=== PATIENT | female | born 1970 | race African-American/Black ===

== ENCOUNTER 2025-02-04 17:36 | Emergency (ER) | payer MEDICAID ==
[~2025-02-04] VITALS: Ht 167.6 cm; Wt 87.0 kg
[2025-02-04 17:37] VITALS: O2SAT 98
[2025-02-04] MEDS: IBUPROFEN 600MG TABLET PO STA (17:58)
[2025-02-04] MEDS: ONDANSETRON 4MG ODT PO STA (17:58)
[2025-02-04 18:18] LABS: BASOPHILS % 0.3 % (0.0-2.0); EOSINOPHILS % 0.5 % (0.0-5.0); HEMATOCRIT. 39.9 % (36.0-48.0); HEMOGLOBIN. 13.1 g/dL (12.0-16.0); LYMPHOCYTES % 19.7 % (20.0-50.0); MEAN CORPUSCULAR HEMOGLOBIN 29.7 pg (28.0-32.0); MEAN CORPUSCULAR HGB CONC 32.9 g/dL (31.0-37.0); MEAN CORPUSCULAR VOLUME 90.2 fL (81.0-99.0); MEAN PLATELET VOLUME 8.2 fl (7.4-10.4); MONOCYTES % 5.2 % (2.0-8.0); NEUTROPHILS % 74.3 % (40.0-76.0); PLATELET 243 x1000/uL (130-400); RED BLOOD CELL COUNT 4.43 mill/uL (4.2-5.4); RED CELL DISTRIBUTION WIDTH 15.5 % (11.6-14.6); WHITE BLOOD COUNT 12.1 x1000/uL (4.5-11.0)
[2025-02-04] MEDS: MECLIZINE 25MG TABLET PO ONE (18:21)
[2025-02-04 18:22] LABS: POTASSIUM 4.4 mEq/L (3.5-5.1)
[2025-02-04 18:23] LABS: CALCIUM 9.3 mg/dL (8.7-10.4)
[2025-02-04 18:28] LABS: CREATININE 1.2 mg/dL (0.6-1.0)
[2025-02-04 18:58] LABS: CLARITY URINE CLEAR (CLEAR); GLUCOSE URINE NEGATIVE (NEGATIVE); KETONES URINE NEGATIVE (NEGATIVE); LEUKOCYTE ESTERASE URINE NEGATIVE (NEGATIVE); NITRITE URINE NEGATIVE (NEGATIVE); OCCULT BLOOD URINE NEGATIVE (NEGATIVE); PROTEIN URINE TRACE (NEGATIVE); SPECIFIC GRAVITY URINE 1.018 (1.005-1.030)
[2025-02-04] MEDS ORDERED: MECL-299 MT (19:21)
[2025-02-04 19:49] LABS: COLOR URINE STRAW (YELLOW)
[2025-02-04 19:50] LABS: RBC URINE NONE SEEN /hpf (0-2); SQUAMOUS EPITHELIAL CELL URINE 1+ /lpf (RARE/1+); WBC URINE 0-2 /hpf (0-2)
[2025-02-04 19:51] LABS: BACTERIA URINE NONE SEEN
[2025-02-04 19:52] VITALS: BP 192/82; PULSE 74; RESP 16; TEMP 37; O2SAT 96
== END 2025-02-04 20:20 | disposition home or self-care (01) ==
LOC: ER 17:36
DX: H81.10 Benign paroxysmal vertigo, unspecified ear (principal); I10 Essential (primary) hypertension; F41.9 Anxiety disorder, unspecified
CPT/HCPCS: 99285; 71045; 80048; 81003; 83690; 85025; 36415; 93005; J8597; Q0162